=== PATIENT | female | born 1940 | race Caucasian/White ===

== ENCOUNTER 2017-09-26 15:27 | Outpatient (CLI) | payer MEDICARE ==
--- NOTE | 2017-10-01 10:34 | DEXA Report ---
DEXA SCAN: 09/26/2017 CLINICAL INDICATION: Postmenopausal. TECHNIQUE: Dual energy x-ray absorptiometry (DXA) was performed on a [facility] system. Regions measured are the AP spine, femoral neck, and, if needed, forearm. COMPARISON: None. In accordance with the International Society for Clinical Densitometry (ISCD) guidelines, data from previous exams may be reanalyzed using current recommendations and techniques. This is done to allow a more accurate basis for comparison with the current study. FINDINGS The data for the lumbar spine is as follows: REGION BMD (g/cm/cm) T-SCORE Z-SCORE L1 1.068 -0.5 1.1 L2 1.087 -0.9 0.7 L3 1.209 0.1 1.7 L4 1.255 0.5 2.1 L1-L4 1.158 -0.2 1.4 NOTE: All evaluable vertebrae are used for classification. The data for the hip is as follows: REGION BMD (g/cm/cm) T-SCORE Z-SCORE Neck 0.784 -1.8 0.1 TOTAL 0.850 -1.3 0.5 NOTE: The femoral neck or total proximal femur, whichever is lowest, is used for classification. IMPRESSION WHO CLASSIFICATION BASED ON THE INTERNATIONAL REFERENCE STANDARD IS OSTEOPENIA. FRACTURE RISK IS INCREASED. RECOMMENDATION: Patients with diagnosis of osteoporosis or osteopenia should have regular bone mineral density assessment. For those eligible for Medicare, routine testing is allowed once every 2 years. Testing frequency can be increased for patients who have rapidly progressing disease or for those who are receiving medical therapy to restore bone mass. COMMENT World Health Organization (WHO) definitions for osteoporosis and osteopenia: NORMAL BMD: T-score at 1.0 or higher, fracture risk is low. OSTEOPENIA BMD: T-score between 1.0 and -2.5, fracture risk is increased. OSTEOPOROSIS BMD: T-score at 2.5 or lower, fracture risk high. National Osteoporosis Foundation recommends: 1. Obtain adequate dietary calcium (at least 1200 mg per day) and vitamin D (400 -800 international units per day). 2. Participate, as appropriate, in regular weightbearing and muscle- strengthening exercise. 3. Avoid tobacco use and reduce alcohol and caffeine intake. 4. For more detailed information see the website at www.NOF.org. TD: 09/27/2017 12:18 MARGI
== END 2017-09-26 15:28 | disposition home or self-care (01) ==
LOC: DI 15:27
PROVIDERS: ATTEND Physician Assistant
DX: Z78.0 Asymptomatic menopausal state (principal); M85.88 Other specified disorders of bone density and structure, other site
CPT/HCPCS: 77080

== ENCOUNTER 2017-09-26 15:28 | Outpatient (CLI) | payer MEDICARE ==
--- NOTE | 2017-09-27 14:55 | Mammography Report ---
DIGITAL SCREENING MAMMOGRAM: 09/26/2017 CLINICAL INDICATION: A 77-year-old for screening. COMPARISON: 12/2014, 12/2013, 11/2012, 11/2011, 11/2010, 08/2010, 11/2009. TECHNIQUE: Routine CC and MLO projections were obtained of the breasts. FINDINGS: The breasts demonstrate scattered fibroglandular densities bilaterally. Coarse and punctate, typically benign calcifications are present. No suspicious masses, clustered microcalcifications, or regions of architectural distortion are identified. IMPRESSION: BENIGN FINDINGS. RECOMMENDATION: Routine annual screening unless otherwise clinically indicated. BIRADS CATEGORY 2 - BENIGN FINDINGS. STANDARD QUALIFYING STATEMENTS: 1. This examination was reviewed with the aid of Computer-Aided Detection (CAD). 2. A negative or benign imaging report should not delay biopsy if clinically suspicious findings are present. Consider surgical consultation if warranted. More than 5% of cancers are not identified by imaging. 3. Dense breasts may obscure an underlying neoplasm. TD: 09/27/2017 14:29
== END 2017-09-26 15:29 | disposition home or self-care (01) ==
LOC: DI 15:28
PROVIDERS: ATTEND Physician Assistant
DX: Z12.31 Encounter for screening mammogram for malignant neoplasm of breast (principal)
CPT/HCPCS: 77067

== ENCOUNTER 2017-10-31 14:00 | Outpatient (CLI) | payer MEDICARE ==
--- NOTE | 2017-10-31 15:28 | XRAY Report ---
Procedure Date: 10/31/2017 Accession Number: [id number] / [id number] Procedure: XR - Mandible Bilat CPT Code: FULL RESULT: EXAM: Mandible Bilat DATE: 10/31/2017 2:55 PM CLINICAL HISTORY: TM PAIN COMPARISON: None. TECHNIQUE: 4 views. FINDINGS: Bones: Normal. No fractures or bone lesions. Temporomandibular Joints: Normal. The temporomandibular joints are normally located and symmetric. Sinuses: Normal. No opacities or fluid levels. Other: Normal. No soft tissue swelling. IMPRESSION: Normal mandible radiography. RADIA
== END 2017-10-31 14:01 | disposition home or self-care (01) ==
LOC: DI 14:00
PROVIDERS: ATTEND Physician Assistant
DX: R68.84 Jaw pain (principal)
CPT/HCPCS: 70110

== ENCOUNTER 2018-02-15 09:24 | Outpatient (CLI) | payer MEDICARE ==
--- NOTE | 2018-02-15 15:51 | CT Report ---
Reason: PAIN IN LEFT WRIST Procedure Date: 02/15/2018 Accession Number: [id number] / [id number] Procedure: CT - Upper Extremity Left W/O CPT Code: FULL RESULT: EXAM: LEFT ELBOW CT WITHOUT CONTRAST EXAM DATE: 02/15/2018 09:56 AM. CLINICAL HISTORY: Left wrist pain. Distal ulnar fracture. Clinical concern for scaphoid fracture. COMPARISON: None. TECHNIQUE: Thin-section axial images were acquired of the elbow without contrast. Post-processing: Coronal and sagittal reformats. Other: None. In accordance with CT protocol optimization, one or more of the following dose reduction techniques were utilized for this exam: automated exposure control, adjustment of mA and/or KV based on patient size, or use of iterative reconstructive technique. FINDINGS: Bones: Moderate osteopenia limits evaluation for subtle bony abnormalities. A comminuted intra-articular fracture of the distal radius is nondisplaced. Fracture lines extend to the radiocarpal and the distal radial ulnar joints. Joints: The scapholunate interval is widened to 5 mm. The scapholunate angle is greater than 9 degrees, indicating a dorsal intercalated segmental instability pattern. Severe joint space narrowing and osteophyte formation is at the first carpometacarpal joint. There is mild osteophyte formation and moderate joint space narrowing at the triscaphe joint. Mild osteophyte formation is at the distal radioulnar joint. Musculature: Normal. No fatty atrophy. Other: Dorsal soft tissue swelling is present. IMPRESSION: 1. Comminuted, intra-articular fracture of the distal radius. 2. Scapholunate ligament injury and dorsal intercalated segmental instability pattern, of indeterminate age. 2. Severe osteoarthritis of the first carpometacarpal joint. RADIA
== END 2018-02-15 09:25 | disposition home or self-care (01) ==
LOC: DI 09:24
PROVIDERS: ATTEND Orthopaedic Surgery
DX: M25.532 Pain in left wrist (principal); S52.572A Other intraarticular fracture of lower end of left radius, initial encounter for closed fracture; M18.12 Unilateral primary osteoarthritis of first carpometacarpal joint, left hand

== ENCOUNTER 2019-09-10 13:19 | Outpatient (CLI) | payer MEDICARE ==
--- NOTE | 2019-09-11 09:30 | XRAY Report ---
Reason: RIGHT KNEE PAIN Procedure Date: 09/10/2019 Accession Number: [id number] / [id number] Procedure: XR - Knee 3 View RT CPT Code: Final Report FULL RESULT: EXAM: RIGHT KNEE RADIOGRAPHY EXAM DATE: 09/10/2019 01:32 PM. CLINICAL HISTORY: Right knee pain. COMPARISON: XR KNEE 3 VIEW 10/03/2011 1:38 PM. TECHNIQUE: 3 views. FINDINGS: There is mild narrowing of the lateral compartment of the knee. No chondrocalcinosis. There is a small suprapatellar joint effusion. No significant osteophytic spurring. No subcutaneous radiopaque foreign bodies. IMPRESSION: Mild degenerative narrowing of the lateral compartment of the knee and small suprapatellar joint effusion. No fracture identified. RADIA
== END 2019-09-10 13:20 | disposition home or self-care (01) ==
LOC: DI 13:19
PROVIDERS: ATTEND Registered Nurse
DX: M17.11 Unilateral primary osteoarthritis, right knee (principal); M25.461 Effusion, right knee

== ENCOUNTER 2020-03-24 16:01 | Outpatient (CLI) | payer MEDICARE ==
--- NOTE | 2020-03-24 17:34 | XRAY Report ---
PROCEDURE: Ankle 3 View LT INDICATIONS: LEFT ANKLE PAIN TECHNIQUE: 2 views of the ankle were acquired. COMPARISON: None FINDINGS: Bones: No fractures or dislocations. Ankle mortise is normally aligned. No suspicious bony lesions . Severe tibiotalar joint osteoarthritis. Moderate midfoot osteoarthritis. Large plantar calcaneal ihsan ne spur. Soft tissues: No tibiotalar joint effusion. Achilles tendon appears normal. IMPRESSION: Osteoarthritis. Reviewed by: Juana Vinson MD, PhD on 03/24/2020 5:33 PM PST Approved by: Juana Visnon MD, PhD on 03/24/2020 5:33 PM PST Station ID: [id number]
== END 2020-03-24 16:02 | disposition home or self-care (01) ==
LOC: DI.S 16:01
PROVIDERS: ATTEND Physician Assistant
DX: M19.072 Primary osteoarthritis, left ankle and foot (principal)

== ENCOUNTER 2021-01-27 09:38 | Outpatient (CLI) | payer MEDICARE ==
--- NOTE | 2021-01-27 11:37 | DEXA Report ---
PROCEDURE: Dexa Spine and/or Hip INDICATIONS: OSTEOPENIA TECHNIQUE: Dual energy x-ray absorptiometry (DXA) was performed on a [employer] System. Regions measur ed are the AP Spine, femoral neck, and if needed forearm. COMPARISON: 09/26/2017. FINDINGS: Lumbar Spine: Bone Mineral Density 1.201 g/cm/cm,T score 0.2, normal Left Hip: Bone Mineral Density 0.788 g/cm/cm,T score -1.7, osteopenia Left Femoral Neck: Bone Mineral Density 0.772 g/cm/cm, T score -1.9, osteopenia (T score greater or equal to -1.0: NORMAL) (T score from -1.1 to -2.4: OSTEOPENIA) (T score less than or equal to -2.5 to: OSTEOPOROSIS) Impression: Osteopenia. Bone mineral density has decreased 7.3% interval since prior exam obtained . Patients with diagnosis of osteoporosis or osteopenia should have regular bone mineral density assess ment. For those eligible for Medicare, routine testing is allowed once every 2 years. Testing frequ ency can be increased for patients who have rapidly progressing disease or for those who are receivin g medical therapy to restore bone mass. Reviewed by: Juana Vinson MD, PhD on 01/27/2021 11:36 AM PDT Approved by: Juana Vinson MD, PhD on 01/27/2021 11:36 AM PDT Station ID: [id number]
== END 2021-01-27 09:39 | disposition home or self-care (01) ==
LOC: DI 09:38
PROVIDERS: ATTEND Nurse Practitioner Family
DX: M85.89 Other specified disorders of bone density and structure, multiple sites (principal)

== ENCOUNTER 2021-03-09 10:28 | Outpatient (CLI) | payer MEDICARE ==
--- NOTE | 2021-03-09 13:31 | XRAY Report ---
PROCEDURE: Chest 2 View X-Ray INDICATIONS: DYSPNEA TECHNIQUE: 2 view(s) of the chest. COMPARISON: None. FINDINGS: Surgical changes and devices: None. Lungs and pleura: No pleural effusions or pneumothorax. Lungs are clear. Mediastinum: Mediastinal contours are normal. Heart size is normal. Bones and chest wall: No suspicious bony abnormalities. Soft tissues appear unremarkable. IMPRESSION: No acute process. Reviewed by: Ellie Alvarez MD on 03/09/2021 1:29 PM [facility] Approved by: Ellie Alvarez MD on 03/09/2021 1:29 PM [facility] Station ID: [id number]
== END 2021-03-09 10:29 | disposition home or self-care (01) ==
LOC: DI.S 10:28
PROVIDERS: ATTEND Nurse Practitioner Family
DX: R06.00 Dyspnea, unspecified (principal)

== ENCOUNTER 2021-03-12 15:03 | Outpatient (CLI) | payer MEDICARE ==
--- NOTE | 2021-03-12 16:18 | XRAY Report ---
PROCEDURE: Wrist 3 View RT INDICATIONS: WRIST PAIN TECHNIQUE: 3 views of the wrist were acquired. COMPARISON: None FINDINGS: Bones: No fractures or dislocations. No suspicious bony lesions. Severe degenerative arthritis of t he wrist, with advanced first carpometacarpal degenerative arthritis, severe triscaphe degenerative c hange, and chondrocalcinosis. Question widening of the distance between the scaphoid and lunate. Subc hondral cyst formation in the lunate is likely degenerative in nature. Scaphoid view: Scaphoid intact Soft tissues: No suspicious soft tissue calcifications. IMPRESSION: Advanced degenerative arthritis of the right wrist. Question scapholunate dissociation. Reviewed by: Felipe Girard MD on 03/12/2021 4:17 PM PST Approved by: Felipe Girard MD on 03/12/2021 4:17 PM PST Station ID: [id number]
--- NOTE | 2021-03-12 16:41 | Ultrasound Report ---
PROCEDURE: Duplex Ext Veins Right INDICATIONS: RIGHT WRIST PAIN Cat bite at the region of the dorsal base of thumb. TECHNIQUE: Real-time imaging, as well as color and pulse Doppler interrogation, were performed of the lower extr emity deep veins from the inguinal ligament to the popliteal fossa. COMPARISON: None. FINDINGS: The deep veins are normally compressible, and free of intraluminal thrombus. Color and pu lse Doppler demonstrate normal phasic intraluminal flow. There is normal augmentation response to di stal compression maneuver. Internal jugular, subclavian, axillary, brachial, basilic, and cephalic ve ins are patent. There are 2 separate soft tissue fluid collections at the wrist, one of which measures 5.6 x 1.1 x 2. 4 cm along the palmar aspect of the wrist at the level of the base of the thumb and the other measure s 2.9 x 1.1 x 1.3 cm along the palmar aspect of the wrist centrally. IMPRESSION: 1. There are 2 separate fluid collections present. Consider abscess collections. 2. No evidence of right upper extremity DVT. Comment: Findings were conveyed by the engineering professionals to the ordering provider at the time of study comp letion. Of note, the patient is currently on antibiotics. Reviewed by: Felipe Girard MD on 03/12/2021 4:39 PM PST Approved by: Felipe Girard MD on 03/12/2021 4:39 PM PST Station ID: [id number]
== END 2021-03-12 15:04 | disposition home or self-care (01) ==
LOC: DI 15:03
PROVIDERS: ATTEND Nurse Practitioner Family
DX: R93.6 Abnormal findings on diagnostic imaging of limbs (principal); R93.89 Abnormal findings on diagnostic imaging of other specified body structures; M19.031 Primary osteoarthritis, right wrist; M25.531 Pain in right wrist
CPT/HCPCS: 36415; 80053; 84550; 85025; 85651; 86140

== ENCOUNTER 2021-03-12 16:06 | Outpatient (CLI) | payer MEDICARE ==
[2021-03-12 16:20] LABS: BASOPHILS % (AUTO) 0.3 %; EOSINOPHILS # (AUTO) 0.1 10^3/uL (0.0-0.7); EOSINOPHILS % (AUTO) 0.4 %; HCT - HEMATOCRIT 41.8 % (37.0-47.0); HGB - HEMOGLOBIN 13.7 g/dL (12.0-16.0); LYMPHOCYTES % (AUTO) 17.4 %; MEAN CORPUSCULAR HEMOGLOBIN 29.7 pg (27.0-31.0); MEAN CORPUSCULAR HGB CONC 32.8 g/dL (32.0-36.0); MEAN CORPUSCULAR VOLUME 90.5 fL (81.0-99.0); MEAN PLATELET VOLUME 9.6 fL (7.9-10.8); MONOCYTES # (AUTO) 0.9 10^3/uL (0.0-1.0); MONOCYTES % (AUTO) 7.9 %; NEUTROPHILS # (AUTO) 8.4 10^3/uL (1.5-6.6); NEUTROPHILS % (AUTO) 73.7 %; PLT - PLATELET COUNT 243 10^3/uL (130-450); RED BLOOD COUNT 4.62 10^6/uL (4.20-5.40); RED CELL DISTRIBUTION WIDTH 12.9 % (12.0-15.0); WHITE BLOOD COUNT 11.4 x10^3/uL (4.8-10.8)
[2021-03-12 16:38] LABS: ALBUMIN 4.2 g/dL (3.2-5.5); ALBUMIN/GLOBULIN RATIO 1.3 (1.0-2.2); BILIRUBIN,TOTAL 0.9 mg/dL (0.2-1.0); CALCIUM 9.5 mg/dL (8.5-10.3); CREATININE 0.6 mg/dL (0.4-1.0); POTASSIUM 3.7 mmol/L (3.5-5.0); TOTAL PROTEIN 7.5 g/dL (6.7-8.2)
== END 2021-03-12 16:07 | disposition home or self-care (01) ==
LOC: LAB 16:06
PROVIDERS: ATTEND Nurse Practitioner Family
DX: M25.531 Pain in right wrist (principal)
CPT/HCPCS: 36415; 80053; 84550; 85025; 85651; 86140

== ENCOUNTER 2021-04-07 13:20 | Outpatient (CLI) | payer MEDICARE ==
[2021-04-07] MEDS ORDERED: ALBUTEROL 1 PUFF INH STA (14:20)
== END 2021-04-07 13:21 | disposition home or self-care (01) ==
LOC: RT 13:20
PROVIDERS: ATTEND Nurse Practitioner Family
DX: R06.00 Dyspnea, unspecified (principal)
CPT/HCPCS: 94060

== ENCOUNTER 2021-05-14 06:21 | Day surgery (SDC) | payer MEDICARE ==
[2021-05-14] MEDS ORDERED: LACTATED RINGERS 1,000 ML IV ONE (06:48)
[2021-05-14] MEDS ORDERED: PROPOFOL 500 MG/50 ML 500 MG/50 ML VIAL ONE (07:09)
--- NOTE | 2021-05-14 07:09 | ANESTHESIA ---
Pre-Anesthesia VS, & Labs - Diagnosis history of colon polyps - Procedure colonoscopy Vital Signs: Temp Pulse Resp BP Pulse Ox 36.6 C 102 H 18 144/95 H 95 05/14/21 06:28 05/14/21 06:28 05/14/21 06:28 05/14/21 06:28 05/14/21 06:28 Height: 5 ft 1 in Weight (kg): 59 kg Body Mass Index: 24.5 BMI Classification: Healthy weight - NPO >8 hours - Is Patient ?: No Home Medications and Allergies Home Medications: Ambulatory Orders Rosuvastatin Calcium [Crestor] 5 mg PO DAILY 05/13/21 Lysine 1,000 mg PO DAILY 12/26/12 Bulpitt-3 Fatty Acids [Fish Oil] 500 mg PO DAILY 12/26/12 Turmeric 1 tab PO DAILY 12/18/15 Rosuvastatin Calcium [Crestor] 5 mg PO DAILY 05/13/21 Allergies/Adverse Reactions: Allergies Allergy/AdvReac Type Severity Reaction Status Date / Time codeine [Codeine] AdvReac Itching Verified 12/25/12 12:37 morphine AdvReac Itching Verified 12/25/12 12:37 Anes History & Medical History - Anesthetic History Anesthesia Complications: reports: No previous complications - Medical History Cardiovascular: reports: High cholesterol Pulmonary: reports: None Gastrointestinal: reports: GERD, Colon polyps Urinary: reports: None Neuro: reports: None Musculoskeletal: reports: Osteoarthritis Endocrine/Autoimmune: reports: None Blood Disorders: reports: Anemia Skin: reports: None Smoking Status: Former smoker (quit 1994) Psychosocial: reports: No issues indicated History of Cancer?: No - Surgical History General: reports: Colonoscopy Gynecologic: reports: Hysterectomy Exam General: Alert, Oriented x3, Cooperative, No acute distress Dental: WNL Mouth Openin Fingerbreadth Neck Mobility: Normal Mallampati classification: I Thyromental Distance: 4-6 cm Mental/Cognitive Status: Alert/Oriented X3, Normal for patient Plan Anesthesia Type: General, Total IV Consent for Procedure(s) Verified and Reviewed: Yes Code Status: Attempt Resuscitation ASA classification: 2-Mild systemic disease Is this case an emergency?: No
[2021-05-14] MEDS ORDERED: LACTATED RINGERS 300 ML IV ONE (08:07)
[2021-05-14 08:29] VITALS: BP 110/75
--- NOTE | 2021-05-14 10:17 | ANESTHESIA POST OP EVALUATION ---
Anesthesia Post Eval - Post Anesthesia Eval Vitals: Last Vital Signs Temp 36.5 C 05/14/21 08:28 Pulse 81 05/14/21 08:28 Resp 20 05/14/21 08:28 BP 110/75 05/14/21 08:28 Pulse Ox 98 05/14/21 08:28 CV Function Including HR & BP: Stable Pain Control: Satisfactory Nausea & Vomiting: Negative Mental Status: Baseline Respiratory Status: Airway Patent Hydration Status: Satisfactory Anesthesia Complications: None
== END 2021-05-14 06:22 | disposition home or self-care (01) ==
LOC: SDS 06:21
PROVIDERS: ATTEND Surgery
PROC: 0DBL8ZZ Excision of Transverse Colon, Via Natural or Artificial Opening Endoscopic (ICD-10-PCS; 2021-05-14)
PROC: 0DBK8ZZ Excision of Ascending Colon, Via Natural or Artificial Opening Endoscopic (ICD-10-PCS; principal; 2021-05-14 07:30)
DX: Z12.11 Encounter for screening for malignant neoplasm of colon (principal); D12.3 Benign neoplasm of transverse colon; D12.2 Benign neoplasm of ascending colon; K57.30 Diverticulosis of large intestine without perforation or abscess without bleeding; I49.9 Cardiac arrhythmia, unspecified; Z87.891 Personal history of nicotine dependence
CPT/HCPCS: 45380; J7120

== ENCOUNTER 2021-06-10 13:35 | Outpatient (CLI) | payer MEDICARE ==
[2021-06-10] MEDS ORDERED: IOPAMIDOL-300 50 ML VIAL ONE (13:59)
[2021-06-10] MEDS ORDERED: IOVERSOL 320 100 ML VIAL IVP ONE ×2 (13:59→15:22)
[2021-06-10 14:01] LABS: CALCIUM 9.4 mg/dL (8.5-10.3); CREATININE 0.6 mg/dL (0.4-1.0); POTASSIUM 4.1 mmol/L (3.5-5.0)
[2021-06-10] MEDS ORDERED: IOPAMIDOL-300 50 ML VIAL PO ONE (15:21)
--- NOTE | 2021-06-10 17:21 | CT Report ---
PROCEDURE: Abdomen/Pelvis W INDICATIONS: ABD PAIN CONTRAST: 100 cc Isovue 320. TECHNIQUE: After the administration of oral and intravenous contrast, 5 mm thick sections acquired from the diap hragms to the symphysis. 5 mm thick coronal and sagittal reformats were acquired. For radiation dos e reduction, the following was used: automated exposure control, adjustment of mA and/or kV accordin g to patient size. COMPARISON: None. FINDINGS: Image quality: Excellent. ABDOMEN: Lung bases: Dependent atelectasis. No pleural effusion. Heart size is normal. Coronary artery calcifi cations. Solid organs: Liver is normal in size. Enhancing focus in the right lobe of liver measuring 0.6 cm, ( 3/20). Gallbladder is unremarkable. Biliary system is non dilated. Pancreas enhances normally. No s plenomegaly. Small splenule. No adrenal nodules. Kidneys demonstrate normal size and enhancement, wi thout hydronephrosis. Small nonobstructing left kidney stone. Peritoneum and bowel: Bowel loops demonstrate normal wall thickness and caliber. Diverticulosis. Nor mal appendix. No free fluid or air. Nodes and vessels: No retroperitoneal or mesenteric adenopathy by size criteria. Aorta and inferior vena cava are normal in size. Moderate calcified plaque. Miscellaneous: No ventral hernias. PELVIS: Genitourinary: Bladder wall thickness is normal. Bladder is distended. Uterus is absent. Miscellaneous: No inguinal hernias or adenopathy. Bones: No suspicious bony lesions. No vertebral body compression fractures. Grade 1 anterolisthesi s of L5 on S1. Bilateral L5 pars defect. Multilevel DDD. IMPRESSION: 1. No acute abnormality is identified. No free fluid. 2. Grade 1 anterolisthesis of L5 on S1. Bilateral L5 pars defect. 3. Diverticulosis. Small nonobstructing left kidney stone. 4. Enhancing focus in the right lobe of the liver measuring 0.6 cm. This is indeterminate. This could represent a small hemangioma or other hyperenhancing neoplasm. This could be further characterized w ith MRI of the liver. Reviewed by: Damien Talbert MD on 06/10/2021 5:19 PM PST Approved by: Damien Talbert MD on 06/10/2021 5:19 PM PST Station ID: [id number]
== END 2021-06-10 13:36 | disposition home or self-care (01) ==
LOC: DI 13:35
PROVIDERS: ATTEND Nurse Practitioner Family
DX: R10.9 Unspecified abdominal pain (principal); M43.17 Spondylolisthesis, lumbosacral region; K57.90 Diverticulosis of intestine, part unspecified, without perforation or abscess without bleeding; R93.2 Abnormal findings on diagnostic imaging of liver and biliary tract; N20.0 Calculus of kidney
CPT/HCPCS: 36415; 74177; 80048; Q9967

== ENCOUNTER 2021-07-14 14:43 | Outpatient (CLI) | payer MEDICARE ==
[2021-07-14] MEDS ORDERED: GADOBUTROL 7.5 MMOL/7.5 ML VIAL ONE (15:12)
--- NOTE | 2021-07-14 16:40 | MRI Report ---
PROCEDURE: Abdomen W/WO INDICATIONS: Hepatic lesion on prior CT. CONTRAST: IV CONTRAST: Gadavist ml: 5.8 TECHNIQUE: Coronal ultra fast SE, axial 2D spoiled GE in- and [id number]; axial breath-hold T2 fast SE. Dynam ic axial ultra fast GE during the administration of contrast; post-contrast coronal ultra fast GE or 2D spoiled GE with fat saturation from the hepatic dome to the iliac crests. Optional diffusion weig hted imaging and ADC may be performed. COMPARISON: CT abdomen pelvis 06/10/2021. FINDINGS: Image quality: There is mild motion artifact. Lung bases: No basal pleural effusions. There is mild atelectasis within the right lung base along t he right hemidiaphragm. Heart size is normal. Solid organs: Within segment 7 of the right hepatic lobe, there is a small T1 hypointense and T2 hype rintense lesion with hypervascular enhancement demonstrated. This measures up to 0.9 x 0.8 cm in howard sverse dimension on series 901 image 68. There is persistent hypervascular enhancement on the portal venous and delayed phases. The findings likely represent a hemangioma. Elsewhere, no other discrete h epatic mass lesion identified. No areas of suspicious washout or definite abnormal enhancement. A few gallstones are demonstrated in the gallbladder without wall thickening or pericholecystic fluid . Biliary system is non dilated. Pancreas is normal in morphology. No pancreatic duct dilatation. No peripancreatic edema or fluid collections. No discrete pancreatic mass identified. No adrenal nodule s. The spleen is normal in size. Kidneys demonstrate no hydronephrosis. Nodes and vessels: No retroperitoneal or mesenteric adenopathy by size criteria. Aorta and inferior vena cava are normal in size. Bowel and peritoneum: Visualized bowel loops are normal in caliber. No free fluid. Bones and soft tissues: No ventral hernias. Bone marrow is normal in overall signal. IMPRESSION: 1. Small hypervascular lesion in the right hepatic lobe demonstrates imaging findings most likely rep resenting a hemangioma. The differential may also include an adenoma. Malignant hypervascular lesions such as metastatic disease are considered less likely in the absence of washout. Reviewed by: Dagoberto Chavez MD on 07/14/2021 4:38 PM PDT Approved by: Dagoberto Chavez MD on 07/14/2021 4:38 PM PDT Station ID: [id number]
[2021-07-14] MEDS ORDERED: GADOBUTROL 7.5 MMOL/7.5 ML VIAL IVP ONE (17:11)
== END 2021-07-14 14:44 | disposition home or self-care (01) ==
LOC: DI 14:43
PROVIDERS: ATTEND Nurse Practitioner Family
DX: R93.2 Abnormal findings on diagnostic imaging of liver and biliary tract (principal)
CPT/HCPCS: 74183; A9585

== ENCOUNTER 2021-08-05 13:33 | Outpatient (CLI) | payer MEDICARE ==
[2021-08-05 14:22] LABS: AMYLASE 92 U/L (28-100); LIPASE 52 U/L (22-51)
[2021-08-07 14:01] LABS: CERULOPLASMIN 30 mg/dL (18-53)
[2021-08-08 19:22] LABS: ALPHA 1 GLOBULIN 0.4 g/dL (0.2-0.3); ALPHA 2 GLOBULIN 0.7 g/dL (0.5-0.9); BETA 1 GLOBULIN 0.4 g/dL (0.4-0.6); BETA 2 GLOBULIN 0.3 g/dL (0.2-0.5); GAMMA GLOBULIN 1.1 g/dL (0.8-1.7)
[2021-08-10 17:55] LABS: CK-BB NONE DETECTED % of total (NONE DETECTED); CK-MB 0 % of total (<5); CK-MM 100 % of total (95-100)
== END 2021-08-05 13:34 | disposition home or self-care (01) ==
LOC: LAB 13:33
PROVIDERS: ATTEND Psychiatry & Neurology Neurology
DX: G60.3 Idiopathic progressive neuropathy (principal); H02.409 Unspecified ptosis of unspecified eyelid; R53.1 Weakness; R10.9 Unspecified abdominal pain
CPT/HCPCS: 36415; 81599; 82150; 82390; 82550; 82552; 82607; 82746; 83519; 83690; 84155; 84165